=== PATIENT | male | born 1990 | race Caucasian/White ===

== ENCOUNTER 2017-08-29 09:10 | Emergency (ER) | payer SELFPAY ==
[2017-08-29] VITALS (8 sets, daily range): BP systolic 115–145; BP diastolic 64–87; PULSE 64–85; RESP 12–24; TEMP 36.2–36.5; O2SAT 97–100
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
[2017-08-29] MEDS: MORPHINE 4 MG/ML INJ IV (09:54)
[2017-08-29 10:01] LABS: Add Manual Diff / Slide Review NO; Basophils Percent Auto 0.3 % (0-2); Hematocrit 41.9 % (41-53); Hemoglobin 14.3 g/dL (13.5-17.5); Lymphocytes Percent Auto 18.7 % (25-40); Mean Corpuscular HGB Conc 34.2 % (30-36); Mean Corpuscular Hemoglobin 30.5 PG (26-34); Mean Corpuscular Volume 89.3 fL (80-100); Neutrophils Absolute Auto 11000 /uL (3000-5900); Platelet Count 252 X10^3/uL (150-400); Red Blood Cell Count 4.69 X10^6/uL (4.5-5.9); Red Cell Distribution Width 13.8 % (11.6-14.8); White Blood Cell Count 15.3 X10^3/uL (4.5-11.0)
[2017-08-29 10:13] LABS: Alanine Aminotransferase 45 IU/L (21-72); Albumin 4.7 g/dL (3.5-5.0); Albumin Globulin Ratio 1.5 (1.0-2.8); Alkaline Phosphatase 72 U/L (38-126); Aspartate Aminotransferase 37 IU/L (17-59); Bilirubin Total 0.8 mg/dL (0.2-1.3); Blood Urea Nitrogen 12 mg/dL (9-20); Calcium 9.3 mg/dL (8.4-10.2); Carbon Dioxide 21 mmol/L (22-32); Chloride 106 mmol/L (98-107); Estimated Glomerular Filt Rate > 60.0 mL/min (>60); Globulin 3.1 g/dL (1.7-4.1); Glucose 103 mg/dL (70-100); HEMOLYSIS < 15 (0-50); Lipase 24 U/L (23-300); Potassium 4.1 mmol/L (3.4-5.1); Sodium 142 mmol/L (137-145); Total Protein 7.8 g/dL (6.3-8.2)
[2017-08-29] MEDS: ONDANSETRON 4 MG/2 ML INJ IV (11:20)
[2017-08-29] MEDS: KETOROLAC 60 MG/2 ML VIAL 30 MG IV (11:20)
[2017-08-29] MEDS: LORazepam 2 MG/ML SYRINGE 1 MG IV (11:21)
[2017-08-29] MEDS: TETANUS DIPHTHERIA TOXOIDS 0.5 ML VIAL IM (11:24)
--- NOTE | 2017-08-29 12:40 | PC.NURSE ---
1100- patient breathing slower and easier. reports feeling much better after ativan has kicked in. girlfriend at BS, VSS,
== END 2017-08-29 11:20 | disposition home or self-care (01) ==
PROVIDERS: Emergency Provider Emergency Medicine
DX: S22.31XA Fracture of one rib, right side, initial encounter for closed fracture (principal); Y04.0XXA Assault by unarmed brawl or fight, initial encounter
CPT/HCPCS: 36591; 70450; 70486; 71046; 71260; 72125; 74177; 80053; 83690; 85025; 90471; 90714; 96374; 96375; 99283; 99285; J1885; J2060; J2270; J2405; Q9967

== ENCOUNTER 2020-03-18 18:42 | Emergency (ER) | payer BC, SELFPAY ==
[2020-03-18 18:49] VITALS: BP 125/81; PULSE 80; RESP 22; TEMP 36.4; O2SAT 99
[2020-03-18 19:04] LABS: Bacteria Urine None Seen; RBC Urine None Seen (0-5/HPF)
[2020-03-18 19:12] LABS: UR Morphine/Opiate cutoff 300 Positive (Negative); Ur Creatinine Normal (Normal); Ur Specific Gravity Normal (Normal); Urine Amphetamines Negative (Negative); Urine Barbiturates Negative (Negative); Urine Benzodiazepines Positive (Negative); Urine Cocaine Negative (Negative); Urine MDMA Negative (Negative); Urine Methadone Negative (Negative); Urine Methamphetamines Negative (Negative); Urine Oxycodone Negative (Negative); Urine Phencyclidine Negative (Negative); Urine Tetrahydrocannabinol Negative (Negative); Urine Tricyclic Antidepressant Negative (Negative); Urine pH Normal (Normal)
[2020-03-18 19:13] LABS: Appearance Urine UA CLEAR; Bilirubin Urine UA NEGATIVE (NEGATIVE); Color Urine UA YELLOW; Glucose Urine UA NEGATIVE (Negative); Ketones Urine UA NEGATIVE (NEGATIVE); Leukocyte Esterase Urine UA NEGATIVE (NEGATIVE); Nitrite Urine UA NEGATIVE (Negative); Occult Blood Urine UA NEGATIVE (Negative); Protein Urine UA NEGATIVE (Negative); Specific Gravity Urine UA 1.025 (1.000-1.035); Urobilinogen Urine UA 0.2 E.U./dL (0.2)
[2020-03-18 19:15] LABS: Culture Indicated Urine Cult Not Indicated; Mucus Urine 2+ (Negative); WBC Urine 0-1/HPF (0-5/HPF)
[2020-03-18 19:29] LABS: Add Manual Diff / Slide Review NO; Basophils Absolute Auto 100 /uL (0-100); Basophils Percent Auto 0.8 % (0-2); Eosinophils Absolute Auto 100 /uL (0-450); Eosinophils Percent Auto 0.9 % (2-4); Hematocrit 51.3 % (41-53); Hemoglobin 16.6 g/dL (13.5-17.5); Lymphocytes Absolute Auto 3000 /uL (1100-4500); Lymphocytes Percent Auto 36.3 % (25-40); Mean Corpuscular HGB Conc 32.4 % (30-36); Mean Corpuscular Hemoglobin 29.1 PG (26-34); Mean Corpuscular Volume 89.8 fL (80-100); Monocytes Absolute Auto 800 /uL (0-900); Monocytes Percent Auto 9.8 % (3-14); Neutrophils Absolute Auto 4300 /uL (1500-7000); Neutrophils Percent Auto 52.2 % (50-75); Platelet Count 261 X10^3/uL (150-400); Red Blood Cell Count 5.71 X10^6/uL (4.5-5.9); Red Cell Distribution Width 14.6 % (11.6-14.8); White Blood Cell Count 8.1 X10^3/uL (4.5-11.0)
[2020-03-18 19:37] LABS: Acetaminophen < 10 ug/mL (10-30); Alanine Aminotransferase 37 IU/L (<50); Albumin 4.5 g/dL (3.5-5.0); Albumin Globulin Ratio 1.5 (1.0-2.8); Alkaline Phosphatase 54 U/L (38-126); Aspartate Aminotransferase 32 IU/L (17-59); BUN Creatinine Ratio 10.8 (6-22); Bilirubin Total 0.6 mg/dL (0.2-1.3); Blood Urea Nitrogen 14 mg/dL (9-20); Calcium 9.1 mg/dL (8.4-10.2); Carbon Dioxide 32 mmol/L (22-32); Chloride 103 mmol/L (98-107); Estimated Glomerular Filt Rate > 60.0 mL/min (>60); Ethanol (ETOH) < 10 mg/dL; Globulin 3.1 g/dL (1.7-4.1); Glucose 94 mg/dL (70-100); HEMOLYSIS < 15 (0-50); Potassium 4.6 mmol/L (3.4-5.1); Salicylate < 1.0 mg/dL (<20); Sodium 141 mmol/L (137-145); Total Protein 7.6 g/dL (6.3-8.2)
[2020-03-18 19:58] LABS: COVID19 -Nasal RAPID Negative (Negative)
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
[2020-03-18] MEDS: clonazePAM 0.5 MG TABLET 1 MG PO (20:47)
[2020-03-18 20:55] LABS: Thyroid Stimulating Hormone 1.62 uIU/mL (0.47-4.68)
[2020-03-18 20:56] VITALS: BP 140/81; PULSE 83; RESP 16; O2SAT 97
--- NOTE | 2020-03-19 01:14 | ED.GENADULT ---
HPI - General Adult General Chief complaint: Toxicology Problem Stated complaint: BUNCH OF DRUGS Time Seen by Provider: 03/18/20 19:12 Source: patient and family Mode of arrival: Ambulatory History of Present Illness HPI narrative: 29-year-old gentleman with a history of intermittent opiate use disorder, PTSD with significant length time trauma exposure, alcoholic and absent parents whose brother was murdered 7 days ago and his was today. He has been having dramatically increasing are stress anxiety, racing thoughts, inability to sleep and is concerned that he will have a return to opiate use. His goal is to become the man his daughter needs as a father. He has used heroin intermittently in the past. Last use was 4 days ago and he is not complaining of withdrawal symptoms at this point. He saw his primary care provider Jaclyn Stokes, who gave him a limited prescription of Xanax, Ambien and suggested starting sertraline. He has not yet tried the sertraline. He did find is an ex was very effective and has been feeling that he is sleeping when he is taking the Ambien. Currently he is not suicidal or homicidal. He does not feel that he needs any drug or alcohol detox immediately but he would like to have options for outpatient treatment in the future. He has an appointment scheduled with a psychiatrist in 4 days. Related Data Previous Rx's Medication Instructions Recorded clonazepam 0.5 mg PO BID #30 tab 03/18/20 clonazepam 0.5 mg PO BID #30 tab 03/18/20 Allergies Allergy/AdvReac Type Severity Reaction Status Date / Time clarithromycin [From Biaxin] Allergy Severe throat Verified 03/18/20 19:06 swelling Review of Systems Review of Systems Narrative: Pertinent positive and negative findings as per HPI Remainder of review of systems is otherwise unremarkable for Constitutional: Fevers, chills, weakness ENT: No sore throat, neck pain, ear pain CV: Chest pain, dyspnea on exertion Respiratory: Cough, wheeze, dyspnea GI: Nausea, vomiting, : Dysuria, hematuria, Patient History Medical History Acute situational disturbance Opioid use disorder Social History Smoking Status: Current some day smoker Smoking Status: Current some day smoker alcohol intake frequency: 0-2 drinks per day Substance Use Type: marijuana, opiates and prescription drug Exam Narrative Exam Narrative: General: Healthy appearing, emotionally distraught but Able to give a complete and coherent history. Well-nourished well-developed HEENT: Moist mucous membranes, normal sclera with reactive pupils, Respiratory: Lungs are clear to auscultation, no wheezing no rales no rhonchi. Full and symmetrical air movement Cardiac: Regular rate and rhythm no murmurs no bruits Abdomen: Soft, nontender, good bowel tones, no flank pain Skin: Warm and dry, no rashes, no track hein Neurologic: Grossly neurologically intact with no obvious asymmetries or abnormalities Extremities: No trauma, well perfused Psych: Slightly blunted as he had taken Xanax approximately 2 hours prior to arrival but Cooperative, appropriate insight and affect Initial Vital Signs Initial Vital Signs: Vital Signs Temperature 97.6 F 03/18/20 18:49 Pulse Rate 80 03/18/20 18:49 Respiratory Rate 22 03/18/20 18:49 Blood Pressure 125/81 03/18/20 18:49 Pulse Oximetry 99 03/18/20 18:49 Course Orders Ordered: ED Orders 03/18/20 19:00 Consult to SUPERVISOR OF OFFICIALS - Machine [employer] Sander Stat 03/18/20 19:03 Urinalysis and Microscopic Stat Urine Drug Screen, Rapid Stat 03/18/20 19:18 Acetaminophen Stat Complete Blood Count AUTO DIFF Stat Comprehensive Metabolic Panel Stat Ethanol (ETOH) Stat Salicylate Stat Thyroid Stimulating Hormone Stat 03/18/20 19:21 COVID19 Stat Discontinued Medications Clonazepam (Clonazepam 0.5 Mg Tablet) 1 mg PO NOW ONE Stop: 03/18/20 20:39 Last Admin: 03/18/20 20:47 Dose: 1 mg Documented by: KGBONIFACIOAG Vital Signs Vital signs: Vital Signs - 8 hr 03/18/20 18:49 03/18/20 20:56 Temperature 97.6 F Pulse Rate 80 83 Respiratory Rate 22 16 Blood Pressure 125/81 140/81 Pulse Oximetry 99 97 Medical Decision Making Medical Records Medical records reviewed: Yes I reviewed the patient's medical records. Lab Data Lab results reviewed: Yes I reviewed the patient's lab results. Result diagrams: 03/18/20 19:18 03/18/20 19:18 Labs: Lab Results 03/18/20 03/18/20 03/18/20 Range/Units 19:03 19:03 19:18 WBC 8.1 (4.5-11.0) X10^3/uL RBC 5.71 (4.5-5.9) X10^6/uL Hgb 16.6 (13.5-17.5) g/dL Hct 51.3 (41-53) % MCV 89.8 (80-100) fL MCH 29.1 (26-34) PG MCHC 32.4 (30-36) % RDW 14.6 (11.6-14.8) % Plt Count 261 (150-400) X10^3/uL Neut % (Auto) 52.2 (50-75) % Lymph % (Auto) 36.3 (25-40) % [place] % (Auto) 9.8 (3-14) % Eos % (Auto) 0.9 L (2-4) % Baso % (Auto) 0.8 (0-2) % Neut # (Auto) 4300 (6431-5385) /uL Lymph # (Auto) 3000 (8259-4881) /uL [place] # (Auto) 800 (0-900) /uL Eos # (Auto) 100 (0-450) /uL Baso # (Auto) 100 (0-100) /uL Sodium (137-145) mmol/L Potassium (3.4-5.1) mmol/L Chloride (98-107) mmol/L Carbon Dioxide (22-32) mmol/L BUN (9-20) mg/dL Creatinine (0.66-1.25) mg/dL Estimated GFR (>60) mL/min BUN/Creatinine Ratio (6-22) Glucose (70-100) mg/dL Calcium (8.4-10.2) mg/dL Total Bilirubin (0.2-1.3) mg/dL AST (17-59) IU/L ALT (<50) IU/L Alkaline Phosphatase (38-126) U/L Total Protein (6.3-8.2) g/dL Albumin (3.5-5.0) g/dL Globulin (1.7-4.1) g/dL Albumin/Globulin Ratio (1.0-2.8) TSH (0.47-4.68) uIU/mL Urine Color Yellow Urine Appearance Clear Urine pH 5.0 (4.5-8.0) Ur Specific [place] 1.025 (1.000-1.035) Urine Protein Negative (Negative) Urine Glucose (UA) Negative (Negative) g/dL Urine Ketones Negative (NEGATIVE) Urine Occult Blood Negative (Negative) Urine Nitrate Negative (Negative) Urine Bilirubin Negative (NEGATIVE) Urine Urobilinogen 0.2 (0.2) E.U./dL Ur Leukocyte Esterase Negative (NEGATIVE) Urine RBC None seen (0-5/HPF) Urine WBC 0-1/hpf (0-5/HPF) Urine Bacteria None seen (None) Urine Mucus 2+ H (Negative) Ur Culture Indicated? Cult not indicated Salicylates (<20) mg/dL U Opiates 300ng/mL cut Positive H (Negative) Ur Oxycodone Screen Negative (Negative) Urine Methadone Screen Negative (Negative) Acetaminophen (10-30) ug/mL Ur Barbiturates Screen Negative (Negative) U Tricyclic Antidepress Negative (Negative) Ur Phencyclidine Scrn Negative (Negative) Ur Amphetamines Screen Negative (Negative) U Methamphetamines Scrn Negative (Negative) Ur MDMA Scrn (Ecstasy) Negative (Negative) U Benzodiazepines Scrn Positive H (Negative) Urine Cocaine Screen Negative (Negative) U Marijuana (THC) Screen Negative (Negative) Ethyl Alcohol ( - 10) mg/dL SARS-CoV-2 (PCR) (Negative) 03/18/20 03/18/20 03/18/20 Range/Units 19:18 19:18 19:21 WBC (4.5-11.0) X10^3/uL RBC (4.5-5.9) X10^6/uL Hgb (13.5-17.5) g/dL Hct (41-53) % MCV (80-100) fL MCH (26-34) PG MCHC (30-36) % RDW (11.6-14.8) % Plt Count (150-400) X10^3/uL Neut % (Auto) (50-75) % Lymph % (Auto) (25-40) % [place] % (Auto) (3-14) % Eos % (Auto) (2-4) % Baso % (Auto) (0-2) % Neut # (Auto) (8782-8747) /uL Lymph # (Auto) (6399-2368) /uL [place] # (Auto) (0-900) /uL Eos # (Auto) (0-450) /uL Baso # (Auto) (0-100) /uL Sodium 141 (137-145) mmol/L Potassium 4.6 (3.4-5.1) mmol/L Chloride 103 (98-107) mmol/L Carbon Dioxide 32 (22-32) mmol/L BUN 14 (9-20) mg/dL Creatinine 1.30 H (0.66-1.25) mg/dL Estimated GFR > 60.0 (>60) mL/min BUN/Creatinine Ratio 10.8 (6-22) Glucose 94 (70-100) mg/dL Calcium 9.1 (8.4-10.2) mg/dL Total Bilirubin 0.6 (0.2-1.3) mg/dL AST 32 (17-59) IU/L ALT 37 (<50) IU/L Alkaline Phosphatase 54 (38-126) U/L Total Protein 7.6 (6.3-8.2) g/dL Albumin 4.5 (3.5-5.0) g/dL Globulin 3.1 (1.7-4.1) g/dL Albumin/Globulin Ratio 1.5 (1.0-2.8) TSH 1.62 (0.47-4.68) uIU/mL Urine Color Urine Appearance Urine pH (4.5-8.0) Ur Specific [place] (1.000-1.035) Urine Protein (Negative) Urine Glucose (UA) (Negative) g/dL Urine Ketones (NEGATIVE) Urine Occult Blood (Negative) Urine Nitrate (Negative) Urine Bilirubin (NEGATIVE) Urine Urobilinogen (0.2) E.U./dL Ur Leukocyte Esterase (NEGATIVE) Urine RBC (0-5/HPF) Urine WBC (0-5/HPF) Urine Bacteria (None) Urine Mucus (Negative) Ur Culture Indicated? Salicylates < 1.0 (<20) mg/dL U Opiates 300ng/mL cut (Negative) Ur Oxycodone Screen (Negative) Urine Methadone Screen (Negative) Acetaminophen < 10 L (10-30) ug/mL Ur Barbiturates Screen (Negative) U Tricyclic Antidepress (Negative) Ur Phencyclidine Scrn (Negative) Ur Amphetamines Screen (Negative) U Methamphetamines Scrn (Negative) Ur MDMA Scrn (Ecstasy) (Negative) U Benzodiazepines Scrn (Negative) Urine Cocaine Screen (Negative) U Marijuana (THC) Screen (Negative) Ethyl Alcohol < 10 ( - 10) mg/dL SARS-CoV-2 (PCR) Negative (Negative) Urine Dip Bedside Urine Glucose Negative Bedside Urine Bilirubin - Negative Bedside Urine Ketone - Negative Urine Specific [place] 1.030 Bedside Urine Occult Blood - Negative Bedside Urine pH 6.0 Bedside Urine Protein - Negative Bedside Urine Urobilinogen - Negative Bedside Urine Nitrite - Negative Bedside Urine Leukocytes - Negative Esterase Point of care testing: Urine Dip Bedside Urine Glucose Negative Bedside Urine Bilirubin - Negative Bedside Urine Ketone - Negative Urine Specific [place] 1.030 Bedside Urine Occult Blood - Negative Bedside Urine pH 6.0 Bedside Urine Protein - Negative Bedside Urine Urobilinogen - Negative Bedside Urine Nitrite - Negative Bedside Urine Leukocytes - Negative Esterase MDM Narrative Medical decision making narrative: 29-year-old gentleman with acute situational disturbance in dealing with the recent murder of his brother and his today which he was unable to attend. Intermittent episodes with opiate use disorder currently no use for 4 days and not interested in medications to help with this currently talked about options for dealing with cravings and follow-up with [facility] for continued care once he has passed this urgent crisis. He has already seen his primary care doctor has an appointment with a psychiatrist has been given some suggestions from her social services designee for online resources. He would like both Xanax and Ambien refilled. We had a long discussion about both of these particularly in light of his addiction disorder. My suggestion was rather than Xanax with its fast onset and significant addiction potential to switch to clonazepam for decreased anxiety throughout the course of the day. I also discussed my unease in prescribing Ambien again due to the addiction potential. He has tried trazodone in the past and found it a ?very unclean? feeling. He was not interested in trying Seroquel for a brief time to help calm his recent thoughts to allow sleep. At this time, he is calm significantly is comfortable with the plan going forward I have given him a prescription for clonazepam and suggested that he if he felt is strongly is he stating about continuing the Xanax he would need to call his primary care provider for a refill. I did ask him to choose 1 benzodiazepine only and not take both. He is not currently suicidal or homicidal. Outpatient follow-up for psychiatric care is planned. He is given resources for outpatient addiction medicine care. He has a responsible partner and a safe home to return to. He is safe for home discharge Discharge Plan Departure Patient Disposition: Home Clinical Impression: Acute situational disturbance, Opioid use disorder Insomnia Qualifiers: Insomnia type: unspecified Qualified Code(s): G47.00 - Insomnia, unspecified Instructions: DI for Insomnia Activity Restrictions/Additional Instructions: Thank you for coming in today. I think it is a very positive sign that you are asking for help and clearly outlining the help that you need and the goals you want to achieve. For at the acute stress you are experiencing after your brother's , I am going to suggest that you try clonazepam as a anxiety medication rather than Xanax. I believe that this will give you better anxiety reduction throughout the entire day without the addiction potential that Xanax presents. I have given you 1 mg in the emergency department tonight to help with sleep tonight. I am going to give you a prescription for 0.5 mg and suggest that you take a dose in the morning and again if you are feeling anxious in the late afternoon. If you prefer to continue the Xanax, please contact Jaclyn Stokes. Please make sure you are taking 1 or the other, not both together I very much agree with the suggestion to start Zoloft and would suggest that you start that tomorrow. Please keep your appointment as scheduled on March 22 with the psychiatrist If you do want to consider additional addiction medicine help and counseling, you can follow-up with [facility]. From their website: [email or web address]://www.[email or web address] [facility] is a national leader in office-based medication-assisted treatment for addiction to opioids, alcohol, and other substances. You can typically schedule an appointment the next day and sometimes even same-day appointments are open. Their closest clinics are in [facility] Our social services designee has also suggested considering [employer] as another good resource for you. If you feel that you are getting worse, developing plans to hurt yourself, hurt others or need further reassurance please return to the emergency department I wish you well Prescriptions: New clonazepam 1 mg tablet 0.5 mg PO BID Qty: 30 RF: 0 clonazepam 0.5 mg tablet 0.5 mg PO BID Qty: 30 RF: 0
== END 2020-03-18 20:57 | disposition home or self-care (01) ==
PROVIDERS: Emergency Provider Emergency Medicine
DX: F43.0 Acute stress reaction (principal); F19.10 Other psychoactive substance abuse, uncomplicated; G47.00 Insomnia, unspecified; Z20.822 Contact with and (suspected) exposure to COVID-19
CPT/HCPCS: 36415; 80053; 80305; 80320; 80329; 81001; 81003; 84443; 85025; 87635; 99283; C9803; G0480

== ENCOUNTER 2021-01-09 15:30 | Emergency (ER) | payer OTHER, MEDICAID, SELFPAY ==
[2021-01-09 15:42] VITALS: BP 162/80; PULSE 71; RESP 17; TEMP 36.6; O2SAT 99; BMI 28.7
[2021-01-09 18:00] VITALS: BP 142/93; PULSE 78; O2SAT 96
[2021-01-09] MEDS: SODIUM CHLORIDE 0.9% 1,000 ML 1000 ML IV (18:11)
[2021-01-09 18:15] LABS: Add Manual Diff / Slide Review NO; Basophils Absolute Auto 100 /uL (0-100); Basophils Percent Auto 0.7 % (0-2); Eosinophils Absolute Auto 0 /uL (0-450); Eosinophils Percent Auto 0.4 % (2-4); Hematocrit 48.5 % (41-53); Hemoglobin 16.4 g/dL (13.5-17.5); Lymphocytes Absolute Auto 2500 /uL (1100-4500); Lymphocytes Percent Auto 23.9 % (25-40); Mean Corpuscular HGB Conc 33.7 % (30-36); Mean Corpuscular Hemoglobin 30.2 PG (26-34); Mean Corpuscular Volume 89.6 fL (80-100); Monocytes Absolute Auto 1100 /uL (0-900); Monocytes Percent Auto 10.6 % (3-14); Neutrophils Absolute Auto 6800 /uL (1500-7000); Neutrophils Percent Auto 64.4 % (50-75); Platelet Count 239 X10^3/uL (150-400); Red Blood Cell Count 5.41 X10^6/uL (4.5-5.9); Red Cell Distribution Width 13.8 % (11.6-14.8); White Blood Cell Count 10.6 X10^3/uL (4.5-11.0)
[2021-01-09 18:30] VITALS: BP 132/73; PULSE 62; O2SAT 98
[2021-01-09 18:32] LABS: Alanine Aminotransferase 50 IU/L (<50); Albumin 4.8 g/dL (3.5-5.0); Albumin Globulin Ratio 1.4 (1.0-2.8); Alkaline Phosphatase 55 U/L (38-126); Aspartate Aminotransferase 45 IU/L (17-59); BUN Creatinine Ratio 13.3 (6-22); Bilirubin Total 0.9 mg/dL (0.2-1.3); Blood Urea Nitrogen 14 mg/dL (9-20); Calcium 9.5 mg/dL (8.4-10.2); Carbon Dioxide 32 mmol/L (22-32); Chloride 100 mmol/L (98-107); Estimated Glomerular Filt Rate > 60.0 mL/min (>60); Globulin 3.5 g/dL (1.7-4.1); Glucose 98 mg/dL (70-100); HEMOLYSIS 50 (0-50); Lipase 39 U/L (23-300); Potassium 4.4 mmol/L (3.4-5.1); Sodium 141 mmol/L (137-145); Total Protein 8.3 g/dL (6.3-8.2)
[2021-01-09 19:00] VITALS: BP 127/75; PULSE 56; O2SAT 99
--- NOTE | 2021-01-09 19:05 | ED_ITS ---
HPI - Abdominal Pain General Chief Complaint: Abdominal Pain Stated Complaint: LT side pain, stomach, throw up x 2 days Time Seen by Provider: 01/09/21 18:06 Source: patient Mode of arrival: Ambulatory History of Present Illness HPI narrative: 30-year-old male former smoker with a benign medical history presents with a chief complaint of episodic vomiting off and on for quite some time but significantly worsening symptoms over the past few days. He had a episode where he vomited with what he reports as nothing in his stomach and felt a sudden tearing pain in his left chest and abdomen that has been there since. He states it only hurts with deep breath. He has had small streaks of blood in his emesis. He denies any difficulties with bowel movements. He denies dysuria, frequency or urgency. He denies any history of GI bleeding. He denies any strong alcohol history. He states his nerves have been getting the better of him for many months, his brother was murdered in May and he has a child on the way in the next few months. Related Data Previous Rx's Medication Instructions Recorded pantoprazole 40 mg tablet,delayed 40 mg PO DAILY #30 tab 01/09/21 release (Protonix) Allergies Allergy/AdvReac Type Severity Reaction Status Date / Time clarithromycin [From Biaxin] Allergy Severe Anaphylaxis Verified 01/09/21 15:46 Review of Systems Review of Systems Narrative: GENERAL: Denies chills, fatigue, malaise, fever, sweats. HEENT: Denies sinus pain, ear pain, sore throat, difficulty swallowing, dizziness. RESPIRATORY: Denies dyspnea, cough, wheezing, hemoptysis, sputum. CARDIOVASCULAR: Denies chest pain, palpitations, orthopnea, edema, GASTROINTESTINAL: See HPI. : Denies dysuria, frequency, incontinence, hematuria, urinary retention. MUSCULOSKELETAL: denies weakness, joint pain, or bony pain SKIN: Denies rash, skin lesions, or other NEUROLOGIC: Denies weakness, headache, numbness, change in speech, confusion, seizures, incoordination. PSYCHIATRIC: See HP 12 point review of systems is negative except for those stated above Patient History Medical History Acute situational disturbance Opioid use disorder Social History Smoking Status: Former smoker Smoking Status: Former smoker alcohol intake frequency: a few times a month Substance Use Type: marijuana, opiates and prescription drug Exam Narrative Exam Narrative: GENERAL: [30] year old patient appears stated age. Well-developed patient, in mild distress. HEAD: Atraumatic. Normocephalic. EYES: Pupils equal round and reactive. Extraocular motions intact. No scleral icterus. No injection or drainage. ENT: Nose without bleeding, purulent drainage. Throat without erythema, tonsillar hypertrophy or exudate. Airway patent. NECK: Trachea midline. Non tender CARDIOVASCULAR: Regular rate and rhythm without murmurs, gallops, or rubs. RESPIRATORY: Clear to auscultation. Breath sounds equal bilaterally. No wheezes, rales, or rhonchi. GASTROINTESTINAL: Abdomen soft, non-tender, nondistended. EXTREMITIES: No edema or joint tenderness. BACK: Nontender without deformity or crepitance. No flank tenderness. NEURO: AOx3. SKIN: No rash or erythema of visible areas Initial Vital Signs Initial Vital Signs: Vital Signs Temperature 98 F 01/09/21 15:42 Pulse Rate 71 01/09/21 15:42 Respiratory Rate 17 01/09/21 15:42 Blood Pressure 162/80 H 01/09/21 15:42 Pulse Oximetry 99 01/09/21 15:42 Course Orders Ordered: Discontinued Medications Al Hydrox/Mg Hydrox/Simethicone 20 ml/ Lidocaine HCl 15 ml 0 ml PO NOW ONE Stop: 01/09/21 19:13 Last Admin: 01/09/21 19:31 Dose: 15 ml Documented by: JAMISON Sodium Chloride (Normal Saline 0.9%) 1,000 mls @ 1,000 mls/hr IV BOLUS ONE Stop: 01/09/21 16:55 Last Infusion: 01/09/21 20:28 Dose: 0 mls/hr Documented by: Admin: 01/09/21 18:11 Dose: 1,000 mls/hr Documented by: JAMISON Ondansetron HCl (Ondansetron 4 Mg/2 Ml Inj) 4 mg IV NOW ONE Stop: 01/09/21 15:56 Last Admin: 01/09/21 18:11 Dose: Not Given Documented by: JAMISON Pantoprazole Sodium (Pantoprazole 40 Mg Vial) 40 mg IV NOW ONE Stop: 01/09/21 19:13 Last Admin: 01/09/21 19:31 Dose: 40 mg Documented by: JAMISON Vital Signs Vital signs: Vital Signs - 8 hr 01/09/21 15:42 Temperature 98 F Pulse Rate 71 Respiratory Rate 17 Blood Pressure 162/80 H Pulse Oximetry 99 MDM - Abdominal Pain Lab Data Result diagrams: 01/09/21 18:00 01/09/21 18:00 Labs: Lab Results 01/09/21 01/09/21 Range/Units 18:00 18:00 WBC 10.6 (4.5-11.0) X10^3/uL RBC 5.41 (4.5-5.9) X10^6/uL Hgb 16.4 (13.5-17.5) g/dL Hct 48.5 (41-53) % MCV 89.6 (80-100) fL MCH 30.2 (26-34) PG MCHC 33.7 (30-36) % RDW 13.8 (11.6-14.8) % Plt Count 239 (150-400) X10^3/uL Neut % (Auto) 64.4 (50-75) % Lymph % (Auto) 23.9 L (25-40) % [place] % (Auto) 10.6 (3-14) % Eos % (Auto) 0.4 L (2-4) % Baso % (Auto) 0.7 (0-2) % Neut # (Auto) 6800 (0862-0930) /uL Lymph # (Auto) 2500 (5333-2532) /uL [place] # (Auto) 1100 H (0-900) /uL Eos # (Auto) 0 (0-450) /uL Baso # (Auto) 100 (0-100) /uL Sodium 141 (137-145) mmol/L Potassium 4.4 (3.4-5.1) mmol/L Chloride 100 (98-107) mmol/L Carbon Dioxide 32 (22-32) mmol/L BUN 14 (9-20) mg/dL Creatinine 1.05 (0.66-1.25) mg/dL Estimated GFR > 60.0 (>60) mL/min BUN/Creatinine Ratio 13.3 (6-22) Glucose 98 (70-100) mg/dL Calcium 9.5 (8.4-10.2) mg/dL Total Bilirubin 0.9 (0.2-1.3) mg/dL AST 45 (17-59) IU/L ALT 50 H (<50) IU/L Alkaline Phosphatase 55 (38-126) U/L Total Protein 8.3 H (6.3-8.2) g/dL Albumin 4.8 (3.5-5.0) g/dL Globulin 3.5 (1.7-4.1) g/dL Albumin/Globulin Ratio 1.4 (1.0-2.8) Lipase 39 (23-300) U/L Point of care testing: Urine Dip Bedside Urine Glucose Negative Bedside Urine Bilirubin - Negative Bedside Urine Ketone - Negative Urine Specific [place] 1.025 Bedside Urine Occult Blood - Negative Bedside Urine pH 6.0 Bedside Urine Protein - Negative Bedside Urine Urobilinogen - Negative Bedside Urine Nitrite - Negative Imaging Data Abdominal x-ray: Radiologist's Impression: William Munoz??30??M??1990 ? Allergy/Adv: clarithromycin Close Chest/Abdomen X-ray (Signed) Rajan Huntley - 01/09/[address] (Signed) Obey Hopper - 08/29/[address] (Addendum) Obey Hopper - 08/29/17 Chest/Abdomen/Pelvis CT (Signed) Obey Hopper - 08/29/17 Chest X-Ray (Signed) Obey Hopper - 08/29/[address] (Signed) Obey Hopper - 08/29/17 Launch?[address] [address] XRay Report Signed Patient: William Munoz MR#: [id number] : 1990 Acct:[id number] Age/Sex: 30 / M Date of Service: 01/09/21 Loc: ED Accession Number: [id number] ?? Procedure: XR acute abdomen series Ordering Provider: Forrest Frank D.O. PROCEDURE:? XR ACUTE ABDOMEN SERIES ? INDICATIONS:? pain with deep breath, vomiting ? TECHNIQUE:? One view chest and two views of the abdomen were acquired.? ? COMPARISON:? [facility], CT, CT CHEST ABD PEL W CON, 08/29/2017, 10:20.? CR, XR CHEST 2V, 08/29/2017, 9:21. ? FINDINGS:? ? Surgical changes and devices:? There is a metallic density projecting over the right lower quadrant within the posterior subcutaneous soft tissues on prior CT.? ? Chest:? Lungs are clear.? Heart size is normal.? No pleural effusions.? No pneumoperitoneum.? ? Abdomen:? Bowel gas pattern is normal.? No suspicious calcifications.? ? Bones:? No suspicious bony lesions.? ? IMPRESSION:? ? 1. No acute intra-abdominal radiographic abnormality. ? ? ? Dictated by: Rajan Huntley M.D. on 01/09/2021 at 20:17 ? ? Approved by: Rajan Huntley M.D. on 01/09/2021 at 20:25 ? MDM Narrative Medical decision making narrative: Multiple etiologies for patient's symptoms considered including: [Bowel obstr uction versus pneumothorax versus GERD versus gastritis versus other Patient's symptoms improved over duration of stay with above-stated therapies. Findings and discharge diagnosis discussed with patient/family followed by verbalization of understanding Return precautions discussed with patient/family whom verbalize understanding. Discharge Plan Departure Patient Disposition: Home Clinical Impression: Abdominal pain Instructions: DI for Abdominal Pain-Adult Activity Restrictions/Additional Instructions: *You have been diagnosed with [abdominal pain and vomiting. History, physical exam, labs and imaging are very reassuring *What to do: *Please continue to take your regular medications as directed. [x ] New medication prescriptions sent to your pharmacy: [[facility] ] [ ] New medication written as a paper prescription [ ] No new medications given *Please follow up with your primary care provider in 2-3 days, call for an appointment. Let them know you were seen in the Emergency Department and that we ask that you be seen in follow up. We will electronically transmit a record of today's note if your PCP is in our system *If you do not have a primary care provider please contact the [facility] Resource line at [phone]. They will ask some questions about your medical history and help get you set up with a doctor in the community. *Return to Emergency Department if you should have any new, worsening or concerning symptoms, such as [fever greater than 101 F, shaking chills, worsening pain, persistent vomiting or other bothersome symptoms] Prescriptions: New pantoprazole [Protonix] 40 mg tablet,delayed release (/ZEENAT) 40 mg PO DAILY Qty: 30 0RF
--- NOTE | 2021-01-09 19:12 | DI.RAD.S_ITS ---
PROCEDURE: XR ACUTE ABDOMEN SERIES INDICATIONS: pain with deep breath, vomiting TECHNIQUE: One view chest and two views of the abdomen were acquired. COMPARISON: [facility], CT, CT CHEST ABD PEL W CON, 08/29/2017, 10:20. CR, XR CHEST 2V, 08/29/2017, 9:21. FINDINGS: Surgical changes and devices: There is a metallic density projecting over the right lower quadrant within the posterior subcutaneous soft tissues on prior CT. Chest: Lungs are clear. Heart size is normal. No pleural effusions. No pneumoperitoneum. Abdomen: Bowel gas pattern is normal. No suspicious calcifications. Bones: No suspicious bony lesions. IMPRESSION: 1. No acute intra-abdominal radiographic abnormality. Dictated by: Rajan Huntley M.D. on 01/09/2021 at 20:17 Approved by: Rajan Huntley M.D. on 01/09/2021 at 20:25
[2021-01-09 19:31] VITALS: PULSE 63; O2SAT 100
[2021-01-09] MEDS: PANTOPRAZOLE 40 MG VIAL IV (19:31)
[2021-01-09] MEDS: MAG HYDROX/ALUMINUM/SIMETH SUS 20 ML, LIDOCAINE VISCOUS 2% 15 ML PO (19:31)
[2021-01-09 20:00] VITALS: BP 132/73; PULSE 62; O2SAT 100
== END 2021-01-09 20:55 | disposition home or self-care (01) ==
PROVIDERS: Emergency Medicine; Emergency Provider Emergency Medicine
DX: R10.9 Unspecified abdominal pain (principal); R11.10 Vomiting, unspecified; R07.9 Chest pain, unspecified
CPT/HCPCS: 36415; 74022; 80053; 81003; 83690; 85025; 96361; 96374; 99284; C9113

== ENCOUNTER 2025-01-31 08:27 | Emergency (ER) | payer OTHER, SELFPAY ==
[2025-01-31 08:31] VITALS: BP 163/105; PULSE 88; RESP 20; TEMP 36.6; O2SAT 99; BMI 32.5
--- NOTE | 2025-01-31 08:36 | ED_ITS ---
HPI - General Adult General Chief complaint: Shortness of Breath/Dyspnea Stated complaint: SOB, this morning Time Seen by Provider: 01/31/25 08:35 History of Present Illness HPI narrative: 34-year-old gentleman with a history of hypertension on no medications increasing dyspnea awoke this morning in a panic with increasing voice hoarseness, pain in his sensation of tightness in the right chest, when he awoke he felt that there was a bunch of mucus in his upper airway which caused a s ensation of panic. Nobody else at home is sick, he is not describing significant fevers or headache. He does not have a history of asthma. No palpitations or diaphoresis. Patient does have a history of anxiety disorder. Has been taking 1 mg of Xanax daily and discontinued this about a week ago because he did not feel that it was effective. He has seen my a provider at [facility] and feels that he is not making therapeutic progress with that doctor would like to change. Found that the frustration of getting the Xanax refilled every 14 days was worse than trying to treat his symptoms. He does believe that seeing a psychiatrist would probably be helpful and he is open to other treatments for his overall anxiety. Related Data Previous Rx's ?Medication ?Instructions ?Recorded clonazepam 0.5 mg tablet 0.5 mg PO DAILY #45 tabs 12/16 Allergies Allergy/AdvReac Type Severity Reaction Status Date / Time clarithromycin (From Biaxin) Allergy Severe Anaphylaxis Verified 06/14/23 14:02 Review of Systems Review of Systems Narrative: Pertinent positive and negative findings as per HPI Patient History Medical History Opioid use disorder Acute situational disturbance Smoking Status: Current every day smoker tobacco type: cigarettes alcohol intake frequency: a few times a month Exam Initial Vital Signs Initial Vital Signs: Vital Signs Temperature 97.8 F 01/31/25 08:31 Pulse Rate 88 01/31/25 08:31 Respiratory Rate 20 01/31/25 08:31 Blood Pressure 163/105 H 01/31/25 08:31 Pulse Oximetry 99 01/31/25 08:31 Oxygen Delivery Method Room Air 01/31/25 08:31 General: Healthy appearing, in no acute distress. Able to give a complete and coherent history. Well-nourished well-developed HEENT: Moist mucous membranes, normal sclera with reactive pupils, posterior pharynx is not significantly erythematous, he is hoarse Neck: No cervical adenopathy Respiratory: Lungs are clear to auscultation, no wheezing no rales no rhonchi. Full and symmetrical air movement Cardiac: Regular rate and rhythm Skin: Warm and dry, no rashes Neurologic: Grossly neurologically intact with no obvious asymmetries or abnormalities Extremities: No trauma, well perfused Psych: Cooperative, appropriate insight and affect Course Orders Ordered: ED Orders 01/31/25 08:42 Covid-19 + FLU A/B + RSV - PCR Stat 01/31/25 08:44 XR chest 2V Stat 01/31/25 11:49 Consult to ACETYLENE BURNER - [employer] Associate Stat Discontinued Medications Lorazepam (Lorazepam 0.5 Mg Tablet) 1 mg PO NOW ONE Stop: 01/31/25 11:39 Last Admin: 01/31/25 11:46 Dose: 1 mg Documented By: RB Vital Signs Vital signs: Vital Signs - 8 hr 01/31/25 08:31 01/31/25 10:53 Temperature 97.8 F Pulse Rate 88 91 H Respiratory Rate 20 Blood Pressure 163/105 H 178/110 H Pulse Oximetry 99 100 Oxygen Delivery Method Room Air Room Air Medical Decision Making Lab Data Labs: Lab Results 01/31/25 Range/Units 08:42 SARS-CoV-2 (PCR) Negative (Negative) Influenza A (RT-PCR) Flu a negative (NEGATIVE) Influenza B (RT-PCR) Flu b negative (NEGATIVE) RSV (PCR) Negative (Negative) MDM Narrative Medical decision making narrative: 34-year-old gentleman comes in with chest pressure on the left side and a sense of dyspnea. Was having some mild symptoms yesterday woke up early this morning with quite a bit of mucus in his posterior pharynx felt that he could not breath e which increased his overall anxiety. He is hoarse as of this morning. No fevers. Cough is not productive. Additional problems include anxiety disorder. He had been taking a mg of Xanax daily but was required to call his primary physician every 14 days for refills which created more symptoms than it seemed to be resolving. He has not had any Xanax for the last 5 days. He is looking to change primary physician and hopefully counselor or psychiatrist. He does recognize that the bit of phlegm in the posterior pharynx caused worsening anxiety which exacerbated all symptoms. He also notes that he has been sleeping poorly, as increasingly anxious to the point where it is interfering with activities of daily living. He has a distant history of opioid use disorder has clearly moved on from that, his nurse use was years ago he is not on Suboxone currently. Lab workup shows no evidence of influenza RSV or COVID. Chest x-ray is entirely reassuring Patient is reassessed findings reviewed. We talked about his anxiety which is becoming a more significant problem. We were able to get him a primary care appointment on March 06. Social work consult was done he was given [facility] for contacting counselors and we did leave a message with [facility] counseling to see if we could get him in with a psychiatrist knowing that this is an ER follow up and he has a primary care appointment scheduled for March 06. In the meantime, he is reassured regarding his upper respiratory symptoms, reviewed anticipated course of recovery and treatment options. Regarding his anxiety and chronic Xanax use he had been doing some of his own research and when I suggested switching to clonazepam he was quite pleased and his research had led him to believe that that might be a better option for him. I am going to give him 0.5 mg of clonazepam to use daily. His appointment is not until March 06 so I will make sure that he has a enough clonazepam to make it through that appointment. He is given an additional 1mg of clonazepam orally prior to discharge from the emergency department to again help with the more acute withdrawal symptoms and to make sure that prescription we will be available as prescribed. Questions were answered and he is safely discharged with the caveat that if his anxiety, sleeplessness or other psychiatric symptoms worsen that he is welcome to come to the emergency department and we can offer further assistance. Discharge Plan Departure Patient Disposition: Home Clinical Impression: Acute upper respiratory infection Anxiety disorder Qualifiers: Anxiety disorder type: unspecified anxiety disorder Qualified Code(s): F41.9 - Anxiety disorder, unspecified Instructions: DI for Viral Upper Respiratory Infection -- Adult, DI for Anxiety -- Adult Activity Restrictions/Additional Instructions: You have a new primary care appointment In his with [facility] care on March 06 at 10:00 a.m. and you need to arrive at 9:30 a.m. Thank you for coming to the ER today. Your workup does not show influenza, COVID or RSV. With a hoarse voice and the bit of discharge in the back of your throat I do believe this is still a virus. Viruses respond to ibuprofen and Tylenol if you are feeling achy or have a fever. Make sure that you are staying hydrated, [id number] cough medicines can also be helpful Regarding your anxiety, we were not able to schedule an appointment with [facility] but our director of social media marketing did give you some additional resources. You and I talked about changing to clonazepam as a long-acting anxiety medication rather than using Xanax. I believe stopping the Xanax cold turkey is probably exacerbating some of your acute anxiety symptoms. I have given you a prescription for clonazepam 2 last beyond March 06, your appointment with your primary care physician If you find that you are anxiety, sleeplessness or other symptoms are getting worse in any way please feel free to return to the emergency department. We can see what other help including hospitalization we are able to offer. Prescriptions: New clonazepam 0.5 mg tablet 0.5 mg PO DAILY Qty: 45 0RF Stand Alone Forms: Patient Portal/API
--- NOTE | 2025-01-31 08:44 | DI.RAD.S_ITS ---
PROCEDURE: XR CHEST 2V INDICATIONS: r/o pna TECHNIQUE: 2 views of the chest were acquired. COMPARISON: [facility], CR, XR CHEST 2V, 08/29/2017, 9:21. FINDINGS: Surgical changes and devices: None. Lungs and pleura: Lungs are clear. No pleural effusions or pneumothorax. Mediastinum: Mediastinal contours are normal. Heart size is normal. Bones and chest wall: No suspicious bony abnormalities. Soft tissues appear unremarkable. IMPRESSION: No acute cardiopulmonary abnormality is seen. Dictated by: Romulo Rivera M.D. on 01/31/2025 at 9:26 Approved by: Romulo Rivera M.D. on 01/31/2025 at 9:26
[2025-01-31 09:30] LABS: Influenza A - CEPHEID Flu A NEGATIVE (NEGATIVE); Influenza B - CEPHEID Flu B NEGATIVE (NEGATIVE)
[2025-01-31 09:47] LABS: COVID-19 CEPHEID 4-PLEX PCR Negative (Negative)
[2025-01-31 10:53] VITALS: BP 178/110; PULSE 91; O2SAT 100
[2025-01-31 13:00] VITALS: BP 174/102; PULSE 85; RESP 20; TEMP 36.8; O2SAT 99
[2025-01-31 13:47] VITALS: BP 179/105; PULSE 79; RESP 17; O2SAT 98
--- NOTE | 2025-01-31 13:50 | CM.SWNOTE ---
ED PROGRAMS MANAGER Assessment Note Patient is 34 y/o male who presents to the ED due to concern for anxiety, panic attacks and concern for SOB and hoarse voice. Patient is in between PCP providers and patient has [employer] insurance. Patient has a hx of Anxiety, hx of previous opioid use. PROGRAMS MANAGER meets with patient, present with patient is patient's s/o. Patient presents as A/Ox4, anxious, with some fatigue. Patient endorses concern for panic attacks, increase in anxiety, lack of sleep and food intake. Patient endorses that these symptoms are impacting daily living. Patient denies SI and HI. Patient has hx of rx for xanax but had difficulty refilling the prescription as PCP required short term refills. Patient is interested in finding a psychiatrist and establishing care with a new PCP. Candis BONITA calls PCP clinic and schedules f/u appt with Dr. De Luna at [address] [place] [address] clinic for 03/06/25 at 9:30am check in. [facility] & psychiatry is contacted regarding referral, it is reported that they are 6 months out and patient would require referral from PCP. PROGRAMS MANAGER calls PCP clinic regarding patient's f/u appt, PROGRAMS MANAGER requests for sooner f/u for patient and to start the process for psychiatry referral. It is reported that they will reach out to patient tomorrow regarding the option for sooner appt. Patient discusses that he is considering going to [facility] hospitalization due to concern for symptoms of anxiety and grave disability. PROGRAMS MANAGER discusses the process for [facility] and patient endorses he would like to try going home, try rx provided and will return to ED if symptoms worsen. PROGRAMS MANAGER discusses [facility] telehealth and patient is not interested due to the 9 hour/week sessions impeding with his work schedule. PROGRAMS MANAGER provides patient with crisis contacts, discusses [facility]-patient declines current referral, and lists of MH providers that accept his insurance. Patient to d/c to home upon medical clearance, patient to f/u with upcoming PCP appt and to f/u with MH resources provided. MACY ValdesSW
== END 2025-01-31 13:57 | disposition home or self-care (01) ==
PROVIDERS: Emergency Provider Emergency Medicine
DX: J06.9 Acute upper respiratory infection, unspecified (principal); R07.89 Other chest pain; F41.9 Anxiety disorder, unspecified; F17.210 Nicotine dependence, cigarettes, uncomplicated
CPT/HCPCS: 71046; 87637; 99283

== ENCOUNTER 2025-02-15 17:28 | Emergency (ER) | payer OTHER, SELFPAY ==
[2025-02-15 17:30] VITALS: BP 174/100; PULSE 92; RESP 18; TEMP 37.2; O2SAT 98; BMI 32.5
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
--- NOTE | 2025-02-15 18:31 | PC.NURSE ---
patient pacing in room, Patient asked this rebar fabricator if there was any medication he could have stating is there any medicine they can give me because I can do this shit at home. I can pace at home and drink myself to or can I get some medication to help calm me down. Patient told this rebar fabricator that he takes .5mg of Klonopine once a day for anxity, this rebar fabricator notified LISA Najera of patient interaction to see about any interventions available for this patient.
[2025-02-15 18:42] LABS: Add Manual Diff / Slide Review NO; Hematocrit 45.9 % (41-53); Hemoglobin 16.3 g/dL (13.5-17.5); Lymphocytes Absolute Auto 2900 /uL (1100-4500); Mean Corpuscular HGB Conc 35.6 % (30-36); Mean Corpuscular Hemoglobin 32.6 PG (26-34); Mean Corpuscular Volume 91.7 fL (80-100); Platelet Count 251 X10^3/uL (150-400)
[2025-02-15 18:55] LABS: Acetaminophen < 10 ug/mL (10-30); Alanine Aminotransferase 90 IU/L (<50); Albumin 4.7 g/dL (3.5-5.0); Albumin Globulin Ratio 1.3 (1.0-2.8); Alkaline Phosphatase 84 U/L (38-126); Blood Urea Nitrogen 14 mg/dL (9-20); Calcium 8.6 mg/dL (8.4-10.2); Carbon Dioxide 25 mmol/L (22-32); Chloride 102 mmol/L (98-107); Estimated Glomerular Filt Rate > 60 mL/min (>60); Ethanol (ETOH) 151 mg/dL (<10); Globulin 3.5 g/dL (1.7-4.1); Glucose 98 mg/dL (70-99); HEMOLYSIS 27 (0-50); Potassium 4.2 mmol/L (3.4-5.1); Salicylate < 1.0 mg/dL (<20); Sodium 139 mmol/L (137-145); Total Protein 8.2 g/dL (6.3-8.2)
[2025-02-15 19:41] LABS: TSH w/ Reflex to FT4 1.95 uIU/mL (0.47-4.68)
[2025-02-15 19:54] LABS: UR Morphine/Opiate cutoff 300 Negative (Negative); Ur Specific Gravity Normal (Normal); Urine MDMA Negative (Negative); Urine Methamphetamines Negative (Negative); Urine Tetrahydrocannabinol Positive (Negative); Urine Tricyclic Antidepressant Negative (Negative)
== END 2025-02-15 20:28 | disposition left against medical advice (07) ==
LOC: ED 17:56
PROVIDERS: Emergency Provider Student in an Organized Health Care Education/Training Program
DX: F41.8 Other specified anxiety disorders (principal); I10 Essential (primary) hypertension; Z53.29 Procedure and treatment not carried out because of patient's decision for other reasons
CPT/HCPCS: 80053; 80305; 80320; 80329; 81003; 84443; 85025; 99283; A9270; G0480